=== PATIENT | male | born 1975 | race American Indian/Alaskan Native ===

== ENCOUNTER 2018-12-23 10:24 | Emergency (ER) | payer BC ==
[2018-12-23] MEDS ORDERED: Dextrose 50% SYRINGE Inj (50 ml) IV STA ×2 (10:30→10:44)
[2018-12-23] MEDS ORDERED: Dextrose 50% SYRINGE Inj (50 ml) ONE (10:35)
--- NOTE | 2018-12-23 10:37 | C.PDOC ---
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 PER EMS, CALLED DUE TO PT AMS. FS LOW 40S. S/P GLUCOSE BY EMS W IMPROVE. PS TOOK ROUTINE DOSE OF INSULIN THIS MORNING, WAS ABOUT TO EAT "BUT SUGAR DROPPED FASTER THAN I COULD GET FOOD". DENIES RECENT FEVER, ILLNESS EXAM NEG Time Seen by Provider: 12/23/18 10:31 History Per: Patient, EMS History/Exam Limitations: no limitations Onset/Duration Of Symptoms: Hrs Current Symptoms Are (Timing): Still Present Severity: Moderate Past Medical History Reviewed: Historical Data, Nursing Documentation, Vital Signs Vital Signs: Last Vital Signs Temp Pulse 85 12/23/18 10:34 Resp 18 12/23/18 10:34 BP 155/88 H 12/23/18 10:34 Pulse Ox 100 12/23/18 10:34 - Medical History PMH: Diabetes Surgical History: No Surg Hx Family History: States: No Known Family Hx Review Of Systems Except As Marked, All Systems Reviewed And Found Negative. Constitutional: Negative for: Fever, Chills Physical Exam - Physical Exam Appears: Non-toxic, No Acute Distress Skin: Normal Color, Warm, Dry Head: Atraumatic, Normacephalic Eye(s): bilateral: Normal Inspection Oral Mucosa: Moist Cardiovascular: Rhythm Regular Respiratory: Normal Breath Sounds, No Rales, No Rhonchi, No Wheezing Neurological/Psych: Oriented x3, Normal Speech ED Course And Treatment O2 Sat by Pulse Oximetry: 100 (RA) Pulse Ox Interpretation: Normal Reevaluation Time: 11:58 Reassessment Condition: Improved (TOLERATING PO WO DIFF. PT WISHES DC) Medical Decision Making Medical Decision Making: Plan: --Dextrose IV --Glucose, POC Disposition Counseled Patient/Family Regarding: Studies Performed, Diagnosis, Need For Followup - Disposition Referrals: YOUR,PMD [Other] Disposition: HOME/ ROUTINE Disposition Time: 11:58 Condition: IMPROVED Instructions: Low Blood Sugar, Adult (DC) Forms: Work Excuse - Clinical Impression Clinical Impression: Hypoglycemia - Scribe Statement The provider has reviewed the documentation as recorded by the Dionneibe Eli Su Provider Attestation: All medical record entries made by the Scribe were at my direction and personally dictated by me. I have reviewed the chart and agree that the record accurately reflects my personal performance of the history, physical exam, medical decision making, and the department course for this patient. I have also personally directed, reviewed, and agree with the discharge instructions and disposition.
[2018-12-23 12:13] VITALS: BP 148/85; PULSE 87; RESP 20; TEMP 97.7; O2SAT 99
== END 2018-12-23 12:24 | disposition home or self-care (01) ==
LOC: C.ER 10:24
DX: E11.649 Type 2 diabetes mellitus with hypoglycemia without coma (principal); Z79.4 Long term (current) use of insulin